=== PATIENT | male | born 1995 | race Caucasian/White ===

== ENCOUNTER 2018-06-26 14:14 | Emergency (ER) | payer BC, OTHER ==
[~2018-06-26] VITALS: Ht 175.3 cm; Wt 81.8 kg
[2018-06-26 14:19] VITALS: BP 133/73; TEMP 98
[2018-06-26 15:49] VITALS: PULSE 68
== END 2018-06-26 15:55 | disposition home or self-care (01) ==
LOC: COL.ER 14:14
DX: S90.02XA Contusion of left ankle, initial encounter (principal); W23.0XXA Caught, crushed, jammed, or pinched between moving objects, initial encounter